=== PATIENT | female | born 2000 | race Caucasian/White ===

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

== ENCOUNTER 2019-08-02 20:06 | Emergency (ER) | payer OTHER ==
--- NOTE | 2019-08-02 20:31 | ED ---
Abdominal Pain/Female - HPI Summary HPI Summary: The patient is a 19 y/o F presenting to [facility] with a chief complaint of suprapubic abdominal pain over the last week with worsening t nausea and vomiting over the last three days. She reports that she had a mild stomach ache last week, but then she began to feel constantly nauseous specifically over the last three days. She had one episode of vomiting today after becoming dizzy, and she also has been experiencing decreased appetite, increased urination, and mid-back pain. She denies any fevers, diarrhea, or vaginal bleeding or discharge. Currently, her symptoms are rated 5/10 in severity. There are no aggravating or alleviating factors, and she has not used any medication for treatment prior to arrival. She notes that she went to [facility] for possible UTI , which she was negative for. LNMP: two weeks ago. PMHx: Lyme disease. No surgeries. Nonsmoker, occasional EtOH, marijuana use. Medications reviewed. Allergies noted. - History of Current Complaint Chief Complaint: EDNauseaVomitDiarrh Stated Complaint: NAUSEA/BACK PAIN FEVER PER PT Time Seen by Provider: 08/02/19 20:21 Hx Obtained From: Patient Hx Last Menstrual Period: two weeks ago Onset/Duration: Gradual Onset, Lasting Days - about a week, Still Present, Worse Since - three days Timing: Days Severity Initially: Mild Severity Currently: Moderate Pain Intensity: 5 Pain Scale Used: 0-10 Numeric Location: Suprapubic Radiates: No Character: Dull Aggravating Factor(s): Nothing Alleviating Factor(s): Nothing Associated Signs and Symptoms: Positive: Dizzy, Back Pain - mid, Urinary Symptoms - increased urination, Decreased Appetite, Nausea, Vomiting - one episode. Negative: Fever, Vaginal Bleeding, Vaginal Discharge, Diarrhea Allergies/Adverse Reactions: Allergies Allergy/AdvReac Type Severity Reaction Status Date / Time shellfish derived Allergy Hives/Diff. Verified 08/02/19 20:12 Breathing/I tching PMH/Surg Hx/FS Hx/Imm Hx Endocrine/Hematology History: Reports: Other Endocrine/Hematological Disorders - Lyme disease Denies: Hx Diabetes Respiratory History: Denies: Hx Asthma Sensory History: Denies: Hx Legally Blind, Hx Deafness Opthamlomology History: Denies: Hx Legally Blind - Surgical History Surgical History: None Surgery Procedure, Year, and Place: none Infectious Disease History: No Infectious Disease History: Denies: Traveled Outside the [place] in Last 30 Days - Family History Known Family History: Negative: Blood Disorder - Social History Occupation: Student Alcohol Use: Occasionally Hx Substance Use: Yes Substance Use Type: Reports: Marijuana - occasional use Hx Tobacco Use: No Smoking Status (MU): Never Smoked Tobacco Review of Systems - ROS Summary Review of Systems Summary: Home Medications Medication Instructions Recorded Confirmed Type Ibuprofen TAB* [Motrin TAB* 800 MG] 800 mg PO Q6H PRN #30 tab 07/11/18 08/02/19 Rx Negative: Fever Positive: Abdominal Pain - suprapubic, Vomiting - one episode, Nausea, Other - decreased appetite. Negative: Diarrhea Positive: frequency - increased. Negative: discharge, other - vaginal bleeding Positive: Other - mid-back pain Neurological: Other - dizziness All Other Systems Reviewed And Are Negative: Yes Physical Exam - Summary Physical Exam Summary: General: Well-developed, Well-nourished and thin female. No apparent acute distress. HEENT: Normocephalic, Atraumatic. Eyes: Conjuctiva normal, PERRL. Ears: TMs within normal limits. Nares: (-) discharge, (-) erythema. Oropharynx: Clear, dry mucous membranes, (-) exudates. Neck: Soft, FROM, (-) lymphadenopathy, (-) thyromegaly, (-) JVD. Cardiovascular: Normal sinus rhythm, (-) murmur. Lungs: Clear to auscultation bilaterally (-) wheezes, (-) rales, (-) rhonchi. Abdomen: Soft, mild suprapubic tenderness, non-distended, (-) organomegaly, normal bowel sounds. Back: (-) CVA tenderness Extremities: No edema. Skin: Warm, dry, (-) rash. Neuro: Alert and oriented x3, no focal deficits. Psychiatric: Mood normal, affect normal. Triage Information Reviewed: Yes Vital Signs On Initial Exam: Initial Vitals Temp Pulse Resp BP Pulse Ox 97.4 F 80 16 144/75 99 08/02/19 20:08 08/02/19 20:08 08/02/19 20:08 08/02/19 20:08 08/02/19 20:08 Vital Signs Reviewed: Yes Procedures - Sedation Patient Received Moderate/Deep Sedation with Procedure: No Diagnostics - Vital Signs Vital Signs Temp Pulse Resp BP Pulse Ox 08/02/19 20:08 97.4 F 80 16 144/75 99 - Laboratory Result Diagrams: 08/02/19 20:47 08/02/19 20:43 Lab Statement: Any lab studies that have been ordered have been reviewed, and results considered in the medical decision making process. - Ultrasound Transvaginal US Ultrasound Interpretation Completed By: Radiologist Summary of Ultrasound Findings: Impression: 1. There is a simple appearing right ovarian cyst measuring a maximum of 1.9 cm. 2. There is a simple appearing left ovarian cyst measuring a maximum of 3.5 cm. 3. There is trace free fluid in the pelvis, cannot exclude ovarian cyst rupture. ED physician has reviewed this report. Appendix US Ultrasound Interpretation Completed By: Radiologist Summary of Ultrasound Findings: Impression: Bowel: Normal peristalsing bowel in the right lower quadrant. Appendix: The appendix was not visualized. Intraperitoneal space: No free fluid. ED physician has reviewed this report. Re-Evaluation - Re-Evaluation First Eval Re-Evaluation Time: 23:50 Change: Improved Comment: I have discussed results with the patient and the nausea and abdominal pain have resolved. Discussed symptoms that warrant immediate return to ED. Abdominal Pain Fem Course/Dx - Course Course Of Treatment: 19-year-old female with nausea and abdominal discomfort over the last 2 days. Today with dizziness. Vomiting times one. Patient states because of the nausea she hasn't eaten or drank much in the last couple days. She describes pressure in the suprapubic area. Went to urgent care UA was negative. Patient given ibuprofen and Zofran, IV fluids. Ultrasound demonstrated ovarian cysts bilaterally with some free pelvic fluid. Appendix was not visualized. Patient is afebrile this time. Not ill-appearing. No further vomiting. After thorough discussion with patient. We will hold off on CAT scan to look at the appendix. Presumed ovarian cyst at this time. Treat with fluids, ibuprofen. Patient declined any Zofran. Follow up with PCP. Follow-up sooner for any worsening symptoms. - Diagnoses Provider Diagnoses: Abdominal pain, Vomiting, Ovarian cyst Discharge ED - Sign-Out/Discharge Documenting (check all that apply): Patient Departure - Pt will be discharged home. - Discharge Plan Condition: Stable Disposition: HOME Patient Education Materials: Ovarian Cyst (ED), Acute Nausea and Vomiting (ED) , Acute Abdominal Pain (DC) Referrals: [facility] [Primary Care Provider] - 3 Days Additional Instructions: Please follow up with your primary care physician within three days. Please return to ED for any new or worsening symptoms. - Billing Disposition and Condition Condition: STABLE Disposition: Home - Attestation Statements Document Initiated by Dayanara: Yes Documenting Scribe: Vijaya Lindsey Provider For Whom Scribe is Documenting (Include Credential): Dr. Silvina Nolasco MD Scribe Attestation: Vijaya Adam scribed for Dr. Silvina Nolasco MD on 08/03/19 at 0018. Scribe Documentation Reviewed: Yes Provider Attestation: The documentation as recorded by the Vijaya garner accurately reflects the service I personally performed and the decisions made by me, Dr. Silvina Nolasco MD Status of Scribe Document: Viewed
[2019-08-02] MEDS ORDERED: NS 0.9% 1000 ML** 1,000 ML IV ONE (20:38)
[2019-08-02] MEDS ORDERED: Ondansetron INJ* 2 MG/ML VIAL IV ONE (20:38)
[2019-08-02 21:00] LABS: ABS Monocytes 0.8 10^3/ul (0-0.8); ABS Neutrophils 10.9 10^3/ul (1.5-7.7); Eosinophil % 0.2 %; Hematocrit 38 % (35-47); Hemoglobin 12.8 g/dL (12.0-16.0); Lymphocyte % 7.6 %; Mean Corpuscular HGB Conc 34 g/dL (31-36); Mean Corpuscular Hemoglobin 30 pg (27-31); Mean Corpuscular Volume 88 fL (80-97); Mean Platelet Volume 7.9 fL (7.4-10.4); Platelet Count 266 10^3/uL (150-450); Red Blood Count 4.27 10^6 /uL (3.70-4.87); Red Cell Distribution Width 12 % (10-15); White Blood Count 12.7 10^3/uL (3.5-10.8)
[2019-08-02 21:09] LABS: Urine Appearance Turbid; Urine Bilirubin Negative (Negative); Urine Blood Negative (Negative); Urine Color Yellow; Urine Glucose Negative (Negative); Urine Ketones Trace (Negative); Urine Nitrite Negative (Negative); Urine Protein Negative (Negative); Urine Specific Gravity 1.015 (1.010-1.030); Urine Urobilinogen Negative (Negative)
[2019-08-02 21:19] LABS: ALT 16 U/L (7-52); AST 27 U/L (13-39); Albumin 4.4 g/dL (3.2-5.2); Albumin/Globulin Ratio 1.6 (1-3); Alkaline Phosphatase 66 U/L (34-104); Anion Gap 9 mmol/L (2-11); Blood Urea Nitrogen 13 mg/dL (6-24); C Reactive Protein < 1.00 mg/L (<8.01); CO2 Carbon Dioxide 25 mmol/L (22-32); Calcium 9.6 mg/dL (8.6-10.3); Chloride 103 mmol/L (101-111); EGFR Non-African American 76.9 (>60); Globulin 2.8 g/dL (2-4); Glucose 101 mg/dL (70-100); Potassium 3.7 mmol/L (3.5-5.0); Sodium 137 mmol/L (135-145); Total Protein 7.2 g/dL (6.4-8.9)
[2019-08-02 21:25] LABS: HCG Pregnancy < 0.60 mIU/mL
[2019-08-02] MEDS ORDERED: Ibuprofen TAB* 800 MG PO PRN (23:53)
[2019-08-03 00:11] VITALS: BP 123/73
== END 2019-08-03 00:01 | disposition home or self-care (01) ==
LOC: ED 20:06
DX: R10.9 Unspecified abdominal pain (principal); R11.10 Vomiting, unspecified; N83.201 Unspecified ovarian cyst, right side; N83.202 Unspecified ovarian cyst, left side
CPT/HCPCS: 36415; 76705; 76830; 80053; 81003; 83605; 84702; 85025; 86140; 96361; 96374; 99283; A9270-GY; J2405

== ENCOUNTER 2019-12-06 09:04 | Emergency (ER) | payer OTHER ==
[2019-12-06 10:56] LABS: ABS Basophils 0.1 10^3/ul (0-0.2); ABS Monocytes 0.4 10^3/ul (0-0.8); ABS Neutrophils 2.7 10^3/ul (1.5-7.7); Eosinophil % 0.4 %; Hematocrit 44 % (35-47); Hemoglobin 15.2 g/dL (12.0-16.0); Lymphocyte % 23.2 %; Mean Corpuscular HGB Conc 34 g/dL (31-36); Mean Corpuscular Hemoglobin 30 pg (27-31); Mean Corpuscular Volume 88 fL (80-97); Mean Platelet Volume 8.1 fL (7.4-10.4); Platelet Count 183 10^3/uL (150-450); Red Blood Count 5.06 10^6 /uL (3.70-4.87); Red Cell Distribution Width 13 % (10-15); White Blood Count 4.1 10^3/uL (3.5-10.8)
[2019-12-06] MEDS ORDERED: Ibuprofen TAB* 600 MG PO ONE (11:12)
[2019-12-06 11:14] LABS: ALT 25 U/L (7-52); AST 92 U/L (13-39); Albumin 5.2 g/dL (3.2-5.2); Albumin/Globulin Ratio 1.6 (1-3); Alkaline Phosphatase 67 U/L (34-104); Anion Gap 7 mmol/L (2-11); BUN/Creatinine Ratio 9.1 (8-20); Blood Urea Nitrogen 7 mg/dL (6-24); CO2 Carbon Dioxide 28 mmol/L (22-32); Calcium 9.9 mg/dL (8.6-10.3); Chloride 102 mmol/L (101-111); EGFR African American 115.6 (>60); EGFR Non-African American 95.6 (>60); Globulin 3.3 g/dL (2-4); Glucose 88 mg/dL (70-100); Magnesium 2.1 mg/dL (1.9-2.7); Potassium 4.5 mmol/L (3.5-5.0); Sodium 137 mmol/L (135-145); Total Protein 8.5 g/dL (6.4-8.9)
--- NOTE | 2019-12-06 11:17 | ED ---
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 Her fever started on and subsided the next day which is when her leg pain started. Patient reports the pain as throbbing and went to this morning where she tested negative for the flu. She reports coughing, sore throat, lower abd pain, nausea , and diarrhea. Patient denies dysuria and hematuria. The leg pain is severe to the extent that she can not walk or stand up but is slightly alleviated by Advil. The patient rates the pain 7/10 in severity. Symptoms aggravated by nothing. Symptoms alleviated by Advil. Medications reviewed. Allergies noted. Home Medications Medication Instructions Recorded Confirmed Type Ibuprofen TAB* [Motrin TAB* 800 MG] 800 mg PO Q6H PRN #30 tab 07/11/18 12/06/19 Rx - History Of Current Complaint Chief Complaint: EDExtremityLower Time Seen by Provider: 12/06/19 10:54 Hx Obtained From: Patient Onset/Duration: Lasting Days, Still Present Severity Currently: Moderate Character: Throbbing - in legs Aggravating Factor(s): nothing Alleviating Factor(s): Advil Associated Signs And Symptoms: Positive: Cough, Nausea, Diarrhea, Abdominal Pain - lower abd, Fever, Other - positive - sore throat, leg pain negative - hematuria. Negative: Dysuria - Allergies/Home Medications Allergies/Adverse Reactions: Allergies Allergy/AdvReac Type Severity Reaction Status Date / Time shellfish derived Allergy Hives/Diff. Verified 12/06/19 09:15 Breathing/I tching Home Medications: Home Medications Ibuprofen TAB* [Motrin TAB* 800 MG] 800 mg PO Q6H PRN #30 tab 07/11/18 [Rx Confirmed 12/06/19] PMH/Surg Hx/FS Hx/Imm Hx Endocrine/Hematology History: Reports: Other Endocrine/Hematological Disorders - Lyme disease Denies: Hx Diabetes Respiratory History: Denies: Hx Asthma Sensory History: Denies: Hx Legally Blind, Hx Deafness Opthamlomology History: Denies: Hx Legally Blind - Surgical History Surgery Procedure, Year, and Place: none Infectious Disease History: No Infectious Disease History: Denies: Traveled Outside the [place] in Last 30 Days - Family History Known Family History: Negative: Blood Disorder - Social History Alcohol Use: Occasionally Hx Substance Use: Yes Substance Use Type: Reports: Marijuana - occasional use Substance Use Comment - Amount & Last Used: occasional Hx Tobacco Use: No Smoking Status (MU): Never Smoked Tobacco Review of Systems Positive: Fever Positive: Sore Throat Positive: Cough Positive: Abdominal Pain - lower abd, Diarrhea, Nausea Negative: dysuria, hematuria Musculoskeletal: Other - leg pain All Other Systems Reviewed And Are Negative: Yes Physical Exam - Summary Physical Exam Summary: Constitutional: Well-developed, Well-nourished, Alert. (-) Distressed Skin: Warm, Dry HENT: Normocephalic; Atraumatic Eyes: Conjunctiva normal Neck: Musculoskeletal ROM normal neck. (-) JVD, (-) Stridor, (-) Tracheal deviation Cardio: Rhythm regular, rate normal, Heart sounds normal; Intact distal pulses; Radial pulses are 2+ and symmetric. (-) Murmur Pulmonary/Chest wall: Effort normal. (-) Respiratory distress, (-) Wheezes, (-) Rales Abd: Soft, (-) tenderness, (-) Distension, (-) Guarding, (-) Rebound Musculoskeletal: (-) Edema, no swelling in legs, DP/PT pulse 2+ bilaterally, pt can walk with normal gait, no tenderness Lymph: (-) Cervical adenopathy Neuro: Alert, Oriented x3 Psych: Mood and affect Normal Triage Information Reviewed: Yes Vital Signs On Initial Exam: Initial Vitals Temp Pulse Resp BP Pulse Ox 98.8 F 68 18 123/81 100 12/06/19 09:11 12/06/19 09:11 12/06/19 09:11 12/06/19 09:11 12/06/19 09:11 Vital Signs Reviewed: Yes Procedures - Sedation Patient Received Moderate/Deep Sedation with Procedure: No Diagnostics - Vital Signs Vital Signs Temp Pulse Resp BP Pulse Ox 12/06/19 09:11 98.8 F 68 18 123/81 100 - Laboratory Lab Results: Lab Results 12/06/19 Range/Units 10:48 WBC 4.1 (3.5-10.8) 10^3/uL RBC 5.06 H (3.70-4.87) 10^6 /uL Hgb 15.2 (12.0-16.0) g/dL Hct 44 (35-47) % MCV 88 (80-97) fL MCH 30 (27-31) pg MCHC 34 (31-36) g/dL RDW 13 (10-15) % Plt Count 183 (150-450) 10^3/uL MPV 8.1 (7.4-10.4) fL Neut % (Auto) 64.3 % Lymph % (Auto) 23.2 % Branch % (Auto) 10.7 % Eos % (Auto) 0.4 % Baso % (Auto) 1.4 % Absolute Neuts (auto) 2.7 (1.5-7.7) 10^3/ul Absolute Lymphs (auto) 1.0 (1.0-4.8) 10^3/ul Absolute Monos (auto) 0.4 (0-0.8) 10^3/ul Absolute Eos (auto) 0.0 (0-0.6) 10^3/ul Absolute Basos (auto) 0.1 (0-0.2) 10^3/ul Absolute Nucleated RBC 0.0 10^3/ul Nucleated RBC % 0.0 Result Diagrams: 12/06/19 10:48 12/06/19 10:49 Lab Statement: Any lab studies that have been ordered have been reviewed, and results considered in the medical decision making process. Complex Multi-Symp Course/Dx Course Of Treatment: Patient is here with bilateral lower extremity pain. Patient had fever and URI symptoms over the weekend. Patient was seen at urgent care where a flu swab, chest x-ray were performed which were grossly unremarkable. Patient was sent here for further evaluation. Patient is overall well-appearing. Patient had blood performed which showed no abnormalities or any other concerning results. Patient is likely suffering from a viral illness butr was given very strict return precautions for her symptoms. - Diagnoses Provider Diagnoses: Bilateral leg pain, Fever, Cough, Sore throat Discharge ED - Sign-Out/Discharge Documenting (check all that apply): Patient Departure - discharge - Discharge Plan Condition: Stable Disposition: HOME Patient Education Materials: Leg Cramps (ED) Referrals: [facility] [Primary Care Provider] - Additional Instructions: Please take ibuprofen 600 mg every 6 hours for pain You can add Tylenol 1000 mg every 6 hours for pain if needed Stay hydrated with Pedialyte Please return if you cannot walk, have pain in her hips, any other concerning symptoms - Billing Disposition and Condition Condition: STABLE Disposition: Home - Attestation Statements Document Initiated by Frederickibjoyce: Yes Documenting Scribe: Zander Almeida Provider For Whom Dayanara is Documenting (Include Credential): José Antonio Helms MD Scribe Attestation: IZander, scribed for José Antonio Helms MD on 12/06/19 at 1838. Scribe Documentation Reviewed: Yes Provider Attestation: The documentation as recorded by the Zander garner accurately reflects the service I personally performed and the decisions made by me, José Antonio Helms MD Status of Scribe Document: Viewed
[2019-12-06 11:20] LABS: HCG Pregnancy < 0.60 mIU/mL
[2019-12-06 12:15] VITALS: BP 119/73
== END 2019-12-06 12:14 | disposition home or self-care (01) ==
LOC: ED 09:04
DX: M79.605 Pain in left leg (principal); M79.604 Pain in right leg; R50.9 Fever, unspecified; R05 Cough; J02.9 Acute pharyngitis, unspecified; R11.0 Nausea; R19.7 Diarrhea, unspecified; R10.30 Lower abdominal pain, unspecified; Z91.013 Allergy to seafood
CPT/HCPCS: 36415; 80053; 83735; 84702; 85025; 99282; A9270-GY